=== PATIENT | female | born 1965 ===

== ENCOUNTER 2021-03-30 15:42 | Inpatient (IN) | payer OTHER ==
[2021-03-30 16:51] VITALS: BMI 17.9
[2021-03-30] MEDS ORDERED: NICOTINE POLACRILEX 2 MG GUM BUC PRN (18:39)
[2021-03-30] MEDS ORDERED: MAGNESIUM HYDROX 2400MG/30ML ORAL SUSPENSION 30 ML CUP PO PRN (18:39)
[2021-03-30] MEDS ORDERED: hydrOXYzine PAMOATE 25 MG CAPSULE (FP) PO PRN (18:39)
[2021-03-30] MEDS ORDERED: ACETAMINOPHEN 325 MG TABLET (FP) PO PRN ×2 (18:39)
[2021-03-30] MEDS ORDERED: MENTHOL/PHENOL 1 EACH UD MM PRN (18:39)
[2021-03-30] MEDS ORDERED: BISMUTH SUBSALICYLATE 524 MG/30 ML PO PRN (18:39)
[2021-03-30] MEDS ORDERED: MAGNESIUM CITRATE 300 ML BOTTLE PO PRN (18:39)
[2021-03-30] MEDS ORDERED: MAG HYDROX/AL HYDROX/SIMETH 30 ML UNIT-DOSE CUP PO PRN (18:39)
[2021-03-30] MEDS ORDERED: diazePAM 5 MG TABLET PO PRN (18:42)
[2021-03-30] MEDS ORDERED: diazePAM 5 MG TABLET PO ONE (18:42)
[2021-03-30] MEDS: INSULIN SLIDING SCALE (NOVOLOG) 1 VIAL SQ SCH (21:45)
[2021-03-30] MEDS ORDERED: MELATONIN 5 MG TABLETS PO SCH (22:00)
[2021-03-30] MEDS ORDERED: PATIENT'S OWN MEDICATION (NON-FORMULARY) (Pravastatin Sodium 40 MG Tablet) PO SCH (22:00)
[2021-03-30] MEDS ORDERED: INSULIN SLIDING SCALE (NOVOLOG) 1 VIAL SQ SCH (22:00)
[2021-03-30] MEDS: GABAPENTIN 300 MG CAPSULE PO SCH (22:15)
[2021-03-30] MEDS: ERYTHROMYCIN BASE 250 MG TAB PO SCH (22:15)
[2021-03-30] MEDS: ATORVASTATIN CA 10 MG TABLET (FP) PO SCH (22:15)
[2021-03-30] MEDS: THIAMINE HCL 100 MG TABLET (FP) PO SCH (22:16)
[2021-03-30] MEDS: diazePAM 5 MG TABLET PO SCH (22:16)
[2021-03-31] MEDS: ERYTHROMYCIN BASE 250 MG TAB PO SCH ×3 (05:32→22:40)
[2021-03-31] MEDS: diazePAM 5 MG TABLET PO SCH ×4 (05:33→22:39)
[2021-03-31] MEDS: INSULIN SLIDING SCALE (NOVOLOG) 1 VIAL SQ SCH ×4 (07:02→22:56)
[2021-03-31] MEDS: INSULIN (LEVEMIR) 100 UNITS/ML UNITS SQ SCH (07:49)
[2021-03-31] MEDS ORDERED: MAGNESIUM OXIDE 500 MG PO SCH (10:00)
[2021-03-31] MEDS ORDERED: PATIENT'S OWN MEDICATION (NON-FORMULARY) (Insulin Glargine,Hum.Rec.Anlog [Basaglar Kwikpen SQ SCH (10:00)
[2021-03-31] MEDS: PRENATAL VITAMINS W/ FOLIC ACID TABLET (FP) PO SCH (10:43)
[2021-03-31] MEDS: GABAPENTIN 300 MG CAPSULE PO SCH ×2 (10:43→22:40)
[2021-03-31] MEDS: ASPIRIN 81 MG CHEWABLE TABLETS PO SCH (10:43)
[2021-03-31] MEDS: PATIENT'S OWN MEDICATION (NON-FORMULARY) (Lipase/Protease/Amylase [Zenpep Dr 25,000 Unit C PO SCH ×2 (12:46→19:01)
[2021-03-31] MEDS: LOPERAMIDE HCL 2 MG CAPSULE PO PRN (12:49)
[2021-03-31 14:16] LABS: HEMATOCRIT 31.9 % (32.4-45.2); HEMOGLOBIN 9.8 GM/dL (10.7-15.3); MCHC 30.8 g/dl (32.0-36.0); MEAN CELL VOLUME 84.6 fl (80-96); MEAN PLT VOLUME 8.1 fl (7.5-11.1); PLATELET COUNT 363 10^3/uL (134-434); RBC 3.78 M/mm3 (3.60-5.2); RDW 21.7 % (11.6-15.6); WHITE BLOOD COUNT 9.6 K/mm3 (4.0-10.0)
[2021-03-31 14:33] LABS: CALCIUM 9.2 mg/dL (8.5-10.1)
[2021-03-31 14:34] LABS: ALBUMIN 3.2 g/dl (3.4-5.0); BLOOD UREA NITROGEN 4.7 mg/dL (7-18)
[2021-03-31 14:38] LABS: BILIRUBIN,TOTAL 0.9 mg/dL (0.2-1); TOT PROT 7.5 g/dl (6.4-8.2)
[2021-03-31 14:41] LABS: CREATININE 0.6 mg/dL (0.55-1.3)
[2021-03-31] MEDS: MAGNESIUM OXIDE 400 MG TABLET (FP) PO SCH (15:47)
[2021-03-31] MEDS: METHOCARBAMOL 500 MG TABLET PO PRN (17:34)
[2021-03-31] MEDS: IBUPROFEN 400 MG TABLET (FP) PO PRN (17:34)
[2021-03-31] MEDS ORDERED: diphenhydrAMINE HCL 25 MG CAPSULE (FP) PO PRN (22:00)
[2021-03-31] MEDS: THIAMINE HCL 100 MG TABLET (FP) PO SCH (22:40)
[2021-03-31] MEDS: ATORVASTATIN CA 10 MG TABLET (FP) PO SCH (22:40)
[2021-04-01] MEDS ORDERED: INSULIN (NOVOLOG) ASPART 100 UNITS/ML 10ML VIAL SQ ONE (02:12)
[2021-04-01] MEDS ORDERED: INSULIN SLIDING SCALE (NOVOLOG) 1 VIAL SQ ONE (02:13)
[2021-04-01] MEDS: ERYTHROMYCIN BASE 250 MG TAB PO SCH ×3 (06:05→21:45)
[2021-04-01] MEDS: diazePAM 5 MG TABLET PO SCH ×3 (06:05→22:10)
[2021-04-01] MEDS: IBUPROFEN 400 MG TABLET (FP) PO PRN (06:18)
[2021-04-01] MEDS: METHOCARBAMOL 500 MG TABLET PO PRN ×2 (06:18→11:44)
[2021-04-01] MEDS: INSULIN SLIDING SCALE (NOVOLOG) 1 VIAL SQ SCH ×4 (06:45→22:12)
[2021-04-01] MEDS ORDERED: INSULIN (LEVEMIR) 100 UNITS/ML UNITS SQ ONE (06:53)
[2021-04-01] MEDS: PATIENT'S OWN MEDICATION (NON-FORMULARY) (Lipase/Protease/Amylase [Zenpep Dr 25,000 Unit C PO SCH ×4 (08:39→17:15)
[2021-04-01] MEDS: INSULIN (LEVEMIR) 100 UNITS/ML UNITS SQ SCH (09:07)
[2021-04-01] MEDS: MAGNESIUM OXIDE 400 MG TABLET (FP) PO SCH (10:34)
[2021-04-01] MEDS: GABAPENTIN 300 MG CAPSULE PO SCH ×2 (10:35→21:45)
[2021-04-01] MEDS: PRENATAL VITAMINS W/ FOLIC ACID TABLET (FP) PO SCH (10:35)
[2021-04-01] MEDS: ASPIRIN 81 MG CHEWABLE TABLETS PO SCH (10:35)
[2021-04-01] MEDS ORDERED: INSULIN (LEVEMIR) 100 UNITS/ML UNITS SQ SCH (15:00)
[2021-04-01] MEDS: LOPERAMIDE HCL 2 MG CAPSULE PO PRN (18:33)
[2021-04-01] MEDS: ATORVASTATIN CA 10 MG TABLET (FP) PO SCH (21:45)
[2021-04-01] MEDS: THIAMINE HCL 100 MG TABLET (FP) PO SCH (22:12)
[2021-04-02] MEDS: diazePAM 5 MG TABLET PO SCH ×2 (05:59→17:57)
[2021-04-02] MEDS: ERYTHROMYCIN BASE 250 MG TAB PO SCH ×3 (05:59→22:20)
[2021-04-02] MEDS: INSULIN (LEVEMIR) 100 UNITS/ML UNITS SQ SCH (07:12)
[2021-04-02] MEDS: INSULIN SLIDING SCALE (NOVOLOG) 1 VIAL SQ SCH ×4 (07:13→22:25)
[2021-04-02] MEDS: PATIENT'S OWN MEDICATION (NON-FORMULARY) (Lipase/Protease/Amylase [Zenpep Dr 25,000 Unit C PO SCH ×3 (09:29→19:29)
[2021-04-02] MEDS: MAGNESIUM OXIDE 400 MG TABLET (FP) PO SCH (10:55)
[2021-04-02] MEDS: ASPIRIN 81 MG CHEWABLE TABLETS PO SCH (10:55)
[2021-04-02] MEDS: GABAPENTIN 300 MG CAPSULE PO SCH ×2 (10:56→22:21)
[2021-04-02] MEDS: PRENATAL VITAMINS W/ FOLIC ACID TABLET (FP) PO SCH (10:56)
[2021-04-02] MEDS: LOPERAMIDE HCL 2 MG CAPSULE PO PRN (11:59)
[2021-04-02] MEDS ORDERED: INSULIN (NOVOLOG) ASPART 100 UNITS/ML 10ML VIAL SQ ONE (14:17)
[2021-04-02] MEDS: IBUPROFEN 400 MG TABLET (FP) PO PRN (16:50)
[2021-04-02] MEDS: METHOCARBAMOL 500 MG TABLET PO PRN (16:51)
[2021-04-02] MEDS ORDERED: LIPASE/PROTEASE/AMYLASE 6,000 UNIT CAPSULE PO SCH (19:15)
[2021-04-02 22:00] VITALS: TEMP 97.1
[2021-04-02] MEDS: THIAMINE HCL 100 MG TABLET (FP) PO SCH (22:21)
[2021-04-02] MEDS: ATORVASTATIN CA 10 MG TABLET (FP) PO SCH (22:21)
[2021-04-03] MEDS ORDERED: diazePAM 5 MG TABLET PO ONE (06:00)
[2021-04-03] MEDS: ERYTHROMYCIN BASE 250 MG TAB PO SCH (06:18)
[2021-04-03 06:40] VITALS: BP 138/86; PULSE 86
[2021-04-03] MEDS ORDERED: INSULIN (LEVEMIR) 100 UNITS/ML UNITS SQ ONE (07:28)
[2021-04-03] MEDS ORDERED: LIPASE/PROTEASE/AMYLASE 6,000 UNIT CAPSULE PO SCH (08:00)
[2021-04-03] MEDS: INSULIN SLIDING SCALE (NOVOLOG) 1 VIAL SQ SCH (08:09)
[2021-04-03] MEDS: INSULIN (LEVEMIR) 100 UNITS/ML UNITS SQ SCH (08:10)
[2021-04-03] MEDS: ASPIRIN 81 MG CHEWABLE TABLETS PO SCH (09:28)
[2021-04-03] MEDS: MAGNESIUM OXIDE 400 MG TABLET (FP) PO SCH (09:28)
[2021-04-03] MEDS: PRENATAL VITAMINS W/ FOLIC ACID TABLET (FP) PO SCH (09:28)
[2021-04-03] MEDS: GABAPENTIN 300 MG CAPSULE PO SCH (09:28)
[2021-04-03] MEDS ORDERED: LIPASE/PROTEASE/AMYLASE 1 CAP, LIPASE/PROTEASE/AMYLASE 2 CAP PO SCH (12:00)
== END 2021-04-03 09:06 | disposition home or self-care (01) | DRG 897 ==
LOC: YASAS 15:42 → Y3N 18:24
PROVIDERS: ADMIT Allergy & Immunology; ATTEND Allergy & Immunology
PROC: HZ2ZZZZ Detoxification Services for Substance Abuse Treatment (ICD-10-PCS; principal; 2021-03-30)
DX: F10.230 Alcohol dependence with withdrawal, uncomplicated (principal); Z68.1 Body mass index [BMI] 19.9 or less, adult; K90.9 Intestinal malabsorption, unspecified; F17.210 Nicotine dependence, cigarettes, uncomplicated; F10.24 Alcohol dependence with alcohol-induced mood disorder; D64.9 Anemia, unspecified; G62.9 Polyneuropathy, unspecified; G47.00 Insomnia, unspecified; E11.9 Type 2 diabetes mellitus without complications; Z79.4 Long term (current) use of insulin; K31.84 Gastroparesis; M41.9 Scoliosis, unspecified; R63.4 Abnormal weight loss; Z87.19 Personal history of other diseases of the digestive system; Z91.410 Personal history of adult physical and sexual abuse; Z88.1 Allergy status to other antibiotic agents; Z91.030 Bee allergy status
CPT/HCPCS: 36415; 80053; 82962; 85027; 86780; C9803; U0003; U0005